=== PATIENT | male | born 2000 | race Caucasian/White ===

== ENCOUNTER 2020-11-10 02:06 | Emergency (ER) | payer BC ==
[~2020-11-10] VITALS: Ht 165.1 cm; Wt 70.0 kg
[2020-11-10] MEDS ORDERED: FAMOTIDINE 20 MG (PEPCID) TABLET PO STA (02:28)
[2020-11-10] MEDS ORDERED: diphenhydrAMINE 50 MG/ML INJ (BENADRYL) IM ONE (02:30)
[2020-11-10] MEDS ORDERED: methylPREDNISolone 125 MG (Solu-MEDROL) VIAL IM ONE (02:30)
--- NOTE | 2020-11-10 02:43 | ED General ---
General Chief Complaint: Allergic Reaction Stated Complaint: HIVES Nursing Triage Note: Woke up with head to toe hives. Unknown cause. No SOA. Source of Information: Patient Exam Limitations: No Limitations History of Present Illness Date Seen by Provider: Nov 10, 2020 Time Seen by Provider: 02:20 Initial Comments Here with report of hives that are on all extremities, torso, neck and face. He is unsure of what precipitated this. Did have a similar episode several months ago. Denies breathing problems, nausea, vomiting or abdominal pain. He has not taken anything for this tonight. He is not sure of the trigger. Woke up from sleep with symptoms. Timing/Duration: 1/2 Hour Severity: Moderate Associated Systoms: No Cough, No Fever/Chills, No Nausea/Vomiting, No Shortness of Air, No Weakness Allergies and Home Medications Allergies Coded Allergies: No Known Drug Allergies (Unverified , 11/10/20) Patient Home Medication List Home Medication List Reviewed: Yes Review of Systems Review of Systems Constitutional: see HPI; No fever, No weakness EENTM: No nose congestion, No throat pain Respiratory: No cough, No short of breath, No wheezing Cardiovascular: no symptoms reported Gastrointestinal: no symptoms reported Genitourinary: no symptoms reported Skin: see HPI; No lesions, No pruritus Psychiatric/Neurological: No Symptoms Reported Past Doqjwtd-Yzedly-Gtmohc Hx Patient Social History Tobacco Use?: No Use of E-Cig and/or Vaping dev: No Substance use?: Yes Substance type: Marijuana Substance frequency: Couple times a week Alcohol Use?: Yes Alcohol type: Beer Alcohol Frequency: Couple times a week Pt feels they are or have been: No Immunizations Up To Date Influenza Vaccine Up-to-Date: Yes; Up-to-Date Past Medical History Surgeries: No Respiratory: No Cardiac: No Neurological: No Physical Exam Vital Signs Vital Signs - First Documented 11/10/20 02:21 Temp 35.3 Pulse 60 Resp 20 B/P (MAP) 130/77 (94) Pulse Ox 99 O2 Delivery Room Air Capillary Refill : Height, Weight, BMI Height: '" Weight: lbs. oz. kg; 25.00 BMI Method: General Appearance: No Apparent Distress, WD/WN HEENT: PERRL/EOMI, Pharynx Normal Neck: Non Tender, Supple Respiratory: Lungs Clear, Normal Breath Sounds Cardiovascular: Regular Rate, Rhythm, No Murmur Gastrointestinal: Non Tender, Soft Back: Normal Inspection, No CVA Tenderness, No Vertebral Tenderness Extremity: Normal Range of Motion, Non Tender Neurologic/Psychiatric: Alert, Oriented x3 Skin: Warm/Dry, Other (Hives noted to all 4 extremities, torso, neck and face.) Progress/Results/Core Measures Suspected Sepsis SIRS Temperature: Pulse: 60 Respiratory Rate: 20 Blood Pressure 130 /77 Mean: 94 Results/Orders My Orders Orders - CAREY RUIZ MD Diphenhydramine Injection (Benadryl Inje (11/10/20 02:30) Methylprednisolone Sod Succ (Solu-Medrol (11/10/20 02:30) Famotidine Tablet (Pepcid Tablet) (11/10/20 02:28) Medications Given in ED Current Medications Medications Dose Ordered Sig/Aimee Route Start Time Stop Time Status Last Admin Dose Admin Diphenhydramine HCl 50 mg ONCE ONCE IM 11/10/20 02:30 11/10/20 02:31 DC 11/10/20 02:35 50 MG Methylprednisolone Sodium Succinate 125 mg ONCE ONCE IM 11/10/20 02:30 11/10/20 02:31 DC 11/10/20 02:36 125 MG Vital Signs/I&O 11/10/20 02:21 Temp 35.3 Pulse 60 Resp 20 B/P (MAP) 130/77 (94) Pulse Ox 99 O2 Delivery Room Air Capillary Refill : Blood Pressure Mean: 94 Progress Note : Progress Note Seen and evaluated. Patient does have rather significant amount of hives. Denies breathing problems or abdominal pain. We will initiate Benadryl 50 mg IM, Solu-Medrol 125 mg IM and Pepcid 20 mg p.o. and monitor patient. No i ndication for epinephrine yet as this seems to be isolated to skin and not full- blown anaphylaxis. 0339: Overall doing much better with hives resolving nicely. Still without respiratory, GI or oropharyngeal complaints. Discharged home with return precautions. Patient verbalized understanding instructions and agreement with plan. Departure Impression Primary Impression: Hives of unknown origin Disposition: 01 HOME, SELF-CARE Condition: Improved Departure-Patient Inst. Decision time for Depature: 03:40 Referrals: NO,LOCAL PHYSICIAN (PCP/Family) Primary Care Physician Patient Instructions: Hives (DC) Add. Discharge Instructions: All discharge instructions reviewed with patient and/or family. Voiced understanding. Take medications as directed. You may take Benadryl or the generic diphenhydramine, 25 mg every 6 hours as needed for itching. You should take [id number] Pepcid/famotidine 20 mg twice daily for the next 4 days and then you may take it daily thereafter as needed for stomach upset. After this situation has resolved, if you have hives return, take 2 Benadryl/diphenhydramine tablets and 1 Pepcid/famotidine tablet. Return immediately to the ER for swelling in your throat or mouth, wheezing, abdominal pain or vomiting or worsening hives. Return for other concerns as needed. CAREY RUIZ MD Nov 10, 2020 02:43
[2020-11-10 04:02] VITALS: BP 114/76
== END 2020-11-10 04:00 | disposition home or self-care (01) ==
LOC: ER 02:15 → EDBD 02:15 → ER 04:00
DX: L50.9 Urticaria, unspecified (principal)
CPT/HCPCS: 99284

== ENCOUNTER 2021-01-11 21:46 | Emergency (ER) | payer BC ==
[2021-01-11] MEDS ORDERED: FAMOTIDINE 20 MG (PEPCID) TABLET PO ONE (22:30)
[2021-01-11] MEDS ORDERED: LORATADINE (CLARITIN) 10 MG TAB PO ONE (22:30)
[2021-01-11] MEDS ORDERED: diphenhydrAMINE 25 MG TAB (BENADRYL) PO ONE (22:30)
--- NOTE | 2021-01-11 22:41 | ED Integumentary General ---
General Chief Complaint: Allergic Reaction Stated Complaint: HIVES Source: patient Exam Limitations: no limitations History of Present Illness Date Seen by Provider: Jan 11, 2021 Time Seen by Provider: 22:25 Initial Comments Patient ER by private conveyance [place] he was [place] tonight and started getting hives all over his body started on his right arm and he now has them on all 4 extremities as well as trunk. He is not having any difficulty swallowing, wheezing, stridor, history of asthma or eczema. He says he has had hives twice in the past. He feels little flushed hot in his face like he is going to pass out. He does not have any other significant medical history. He did start having some nausea after arriving but has not vomited. Allergies and Home Medications Allergies Coded Allergies: No Known Drug Allergies (Unverified , 11/10/20) Patient Home Medication List Home Medication List Reviewed: Yes Review of Systems Review of Systems Constitutional: No chills, No diaphoresis EENTM: No ear discharge, No ear pain Respiratory: No cough, No short of breath Cardiovascular: No chest pain, No edema Gastrointestinal: No abdominal pain; nausea; No vomiting Genitourinary: No discharge, No dysuria Musculoskeletal: No back pain, No joint pain Skin: see HPI; No dryness; rash Psychiatric/Neurological: Denies Anxiety, Denies Depressed All Other Systems Reviewed Negative Unless Noted: Yes Past Znvgonl-Ynvknq-Ctqrev Hx Patient Social History Tobacco Use?: No Use of E-Cig and/or Vaping dev: No Substance use?: No Past Medical History Surgeries: No Respiratory: No Cardiac: No Neurological: No Physical Exam Vital Signs Capillary Refill : General Appearance: WD/WN, mild distress HEENT: PERRL/EOMI, normal ENT inspection, pharynx normal Neck: full range of motion, normal inspection Cardiovascular: normal peripheral pulses, regular rate, rhythm Respiratory: lungs clear, normal breath sounds, no respiratory distress, no accessory muscle use Neurologic/Psychiatric: alert, normal mood/affect, oriented x 3 Skin: warm/dry, rash (Wheals, pruritus erythema blanchable all 4 extremities and patches.) Skin Problem Location: generalized Progress/Results/Core Measures Results/Orders My Orders Orders - COURTNEY KATZ Loratadine Tablet (Claritin Tablet) (01/11/21 22:30) Diphenhydramine Tablet (Benadryl Tablet) (01/11/21 22:30) Famotidine Tablet (Pepcid Tablet) (01/11/21 22:30) Ed Iv/Invasive Line Start (01/11/21 22:36) Lactated Ringers (Lr 1000 Ml Iv Solution (01/11/21 22:45) Methylprednisolone Sod Succ (Solu-Medrol (01/11/21 22:45) Diphenhydramine Injection (Benadryl Inje (01/11/21 22:45) Famotidine Injection (Pepcid Injection) (01/11/21 22:45) Ondansetron Injection (Zofran Injectio (01/11/21 22:45) Medications Given in ED Current Medications Medications Dose Ordered Sig/Aimee Route Start Time Stop Time Status Last Admin Dose Admin Diphenhydramine HCl 25 mg ONCE ONCE IVP 01/11/21 22:45 01/11/21 22:46 DC 01/11/21 22:52 25 MG Famotidine 20 mg ONCE ONCE IVP 01/11/21 22:45 01/11/21 22:46 DC 01/11/21 22:51 20 MG Lactated Ringer's 1,000 ml @ 0 mls/hr Q0M ONCE IV 01/11/21 22:45 01/11/21 22:46 DC 01/11/21 22:52 999 MLS/HR Loratadine 10 mg ONCE ONCE PO 01/11/21 22:30 01/11/21 22:31 DC 01/11/21 22:52 10 MG Methylprednisolone Sodium Succinate 125 mg ONCE ONCE IVP 01/11/21 22:45 01/11/21 22:46 DC 01/11/21 22:51 125 MG Progress Progress Note #1: Time: 22:41 Progress Note Because he is feeling lightheaded we will give him some Zofran, a liter of fluids, IV Benadryl, IV Pepcid, Claritin and Solu-Medrol. Will reexamine shortly Progress Note #2: Time: 23:26 Progress Note Patient is feeling much better. Symptoms are resolved. Hives are gone. He is not having any difficulty with breathing or upper airway issues. Since he says he is had problems with the airway issues in the past were going to provide him with an epinephrine pen. Departure Impression Primary Impression: Hives of unknown origin Disposition: HOME, SELF-CARE Condition: Stable Departure-Patient Inst. Decision time for Depature: 23:20 Referrals: NO,LOCAL PHYSICIAN (PCP/Family) Primary Care Physician Patient Instructions: Anaphylaxis (DC), Hives (DC) Add. Discharge Instructions: You are not having anaphylaxis but I did include a handout that she can familiarize yourself. If you have any difficulties with swallowing, vocal changes, thickening or swelling of the tongue or soft tissue in the back of your mouth then you need to take the epinephrine pen on your way to the nearest ER. Use a long-acting second-generation antihistamine such as Claritin, Zyrtec or Marie once or twice a day for itching or hives. Benadryl 1 to 2 tablets every 6 hours as necessary for itching. If this does not work then you can cloth picker the Vistaril and take 1 or 2 tablets every 6 hours as necessary for itching. Pepcid 1 tablet twice a day until the itching resolves. All discharge instructions reviewed with patient and/or family. Voiced understanding. Scripts Hydroxyzine Pamoate (Vistaril) 25 Mg Capsule 25-50 MG PO Q6H PRN for ITCHING, #30 CAP 0 Refills Prov: COURTNEY KATZ 01/11/21 Epinephrine (Epipen 2-Jason) 0.3 Mg/0.3 Ml Auto.injct 0.3 MG IJ Q15M PRN for anaphylaxis, #1 EA 0 Refills Prov: COURTNEY KATZ 01/11/21 Work/School Note: Work Release Form Date Seen in the Emergency Department: Jan 11, 2021 Return to Work: Jan 13, 2021 Restrictions: No Restrictions COURTNEY KATZ Jan 11, 2021 22:41
[2021-01-11] MEDS ORDERED: methylPREDNISolone 125 MG (Solu-MEDROL) VIAL IVP ONE (22:45)
[2021-01-11] MEDS ORDERED: ONDANSETRON 4 MG/2 ML (SDV) Z0FRAN IVP ONE (22:45)
[2021-01-11] MEDS ORDERED: LACTATED RINGERS 1,000 ML IV ONE (22:45)
[2021-01-11] MEDS ORDERED: diphenhydrAMINE 50 MG/ML INJ (BENADRYL) IVP ONE (22:45)
[2021-01-11] MEDS ORDERED: FAMOTIDINE 20MG/2ML IV (PEPCID) IVP ONE (22:45)
[2021-01-11] MEDS ORDERED: HYDR25CA PO (23:30)
[2021-01-11] MEDS ORDERED: EPIN0.3P3 IJ (23:30)
[2021-01-11 23:36] VITALS: BP 108/62
== END 2021-01-11 23:36 | disposition home or self-care (01) ==
LOC: EDUNIT# 21:46 → ER 21:49
DX: L50.9 Urticaria, unspecified (principal)

== ENCOUNTER 2022-02-11 19:59 | Emergency (ER) | payer BC, OTHER ==
[~2022-02-11] VITALS: Ht 165 cm; Wt 75.5 kg
[~2022-02-11 19:59] MED LIST: EPIN0.3P3 IJ; HYDR25CA PO
[2022-02-11 20:04] VITALS: BP 121/77
--- NOTE | 2022-02-11 20:21 | ED Upper Extremity ---
General Chief Complaint: Upper Extremity Stated Complaint: R SHOULDER INJ,HARD TO MOVE R SHOULDER Source: patient Exam Limitations: no limitations History of Present Illness Date Seen by Provider: Feb 11, 2022 Time Seen by Provider: 20:10 Initial Comments Patient reports that he was playing rugby earlier today at the [employer] and injured his right shoulder. States that he was told that he had an AC separation. Reports that he has continued to have pain and decreased range of motion. Denies any other injuries. Has not had an XR. Onset: this afternoon Severity: mild Pain/Injury Location: right shoulder Method of Injury: sports injury Modifying Factors: Worse With Movement; Improves With Rest Allergies and Home Medications Allergies Coded Allergies: No Known Drug Allergies (Unverified , 11/10/20) Patient Home Medication List Home Medication List Reviewed: Yes Epinephrine (Epipen 2-Jason) 0.3 Mg/0.3 Ml Auto.injct, 0.3 MG IJ Q15M PRN for anaphylaxis Prescribed by: COURTNEY KATZ on 01/11/21 2330 Hydroxyzine Pamoate (Vistaril) 25 Mg Capsule, 25-50 MG PO Q6H PRN for ITCHING Prescribed by: COURTNEY KATZ on 01/11/21 2330 Review of Systems Constitutional: no symptoms reported Cardiovascular: no symptoms reported Musculoskeletal: joint pain (right shoulder); No joint swelling; muscle stiffness (right shoulder) Skin: no symptoms reported All Other Systems Reviewed Negative Unless Noted: Yes Past Borcdjs-Kpdxmb-Crvymp Hx Patient Social History Tobacco Use?: Yes Substance use?: Yes Substance type: Marijuana Alcohol Use?: Yes Alcohol Frequency: Once in a while Pt feels they are or have been: No Immunizations Up To Date First/Initial COVID19 Vaccinat: na Past Medical History Surgery/Hospitalization HX: spinal sx Surgeries: No Respiratory: No Cardiac: No Neurological: No Family Medical History Reviewed Nursing Family Hx Physical Exam Vital Signs Vital Signs - First Documented 02/11/22 20:04 Temp 36.6 Pulse 77 Resp 16 B/P (MAP) 121/77 (92) Pulse Ox 98 O2 Delivery Room Air Capillary Refill : Height, Weight, BMI Height: '" Weight: lbs. oz. kg; 25.00 BMI Method: General Appearance: WD/WN, no apparent distress Cardiovascular: regular rate, rhythm, no edema Respiratory: chest non-tender, lungs clear, normal breath sounds, no r espiratory distress, no accessory muscle use Shoulder: No normal ROM; bone tenderness; No deformity, No ecchymosis; limited ROM, pain, swelling (mild) Wrist: Yes normal inspection, Yes non-tender Hand: normal inspection, non-tender, no evidence of injury Neurologic/Psychiatric: alert, normal mood/affect, oriented x 3 Skin: normal color, warm/dry Progress/Results/Core Measures Results/Orders My Orders Orders - JEFFRY PRASAD APRN Shoulder, Right, 3 Views (02/11/22 20:12) Ed Ortho/Other Supplies Order (02/11/22 20:46) Vital Signs/I&O 02/11/22 20:04 Temp 36.6 Pulse 77 Resp 16 B/P (MAP) 121/77 (92) Pulse Ox 98 O2 Delivery Room Air Diagnostic Imaging Diagonstic Imaging: Xray Plain Films/CT/US/NM/MRI: other (shoulder) Comments NAME: FLOR MAGAÑA [facility] REC#: [id number] PT STATUS: REG ER : 2000 PHYSICIAN: JEFFRY PRASAD APRN ADMIT DATE: 02/11/22/ER Draft Date of Exam:02/11/22 SHOULDER, RIGHT, 3 VIEWS HISTORY: Right shoulder pain. TECHNIQUE: 3 views of the right shoulder. COMPARISON: None. FINDINGS: No acute fracture is seen in the right shoulder. There is slight offset at the undersurface of the acromioclavicular joint. Glenohumeral alignment is normal. Joint spaces are otherwise preserved. IMPRESSION: 1. Subtle offset at the acromioclavicular joint without significant widening. Please correlate with clinical findings to exclude AC joint injury. 2. No acute fracture in the right shoulder. Dictated on workstation # [id number] Dict: 02/11/222030 Trans: 02/11/222034 PJE [id number] Interpreted by: YADIEL SMITH MD Electronically signed by: Departure Impression Primary Impression: AC separation Qualified Codes: S43.101A - Unspecified dislocation of right acromioclavicular joint, initial encounter Disposition: 01 HOME, SELF-CARE Condition: Stable Departure-Patient Inst. Decision time for Depature: 20:44 Referrals: NO,LOCAL PHYSICIAN (PCP) Primary Care Physician ANNE-MARIE LÓPEZ MD, MICHAEL P MD Patient Instructions: Shoulder Add. Discharge Instructions: 1. Home and rest. 2. Ice and elevate. 3. Sling as needed for comfort. 4. Alternate Tylenol/Ibuprofen as needed for pain. 5. Follow up with PCP as needed. 6. Follow up with Orthopedics. 7. Return here if worse or concerns. All discharge instructions reviewed with patient and/or family. Voiced understanding. JEFFRY PRASAD APRN Feb 11, 2022 20:21
--- NOTE | 2022-02-11 20:35 | Diagnostic Imaging Report ---
HISTORY: Right shoulder pain. TECHNIQUE: 3 views of the right shoulder. COMPARISON: None. FINDINGS: No acute fracture is seen in the right shoulder. There is slight offset at the undersurface of the acromioclavicular joint. Glenohumeral alignment is normal. Joint spaces are otherwise preserved. IMPRESSION: 1. Subtle offset at the acromioclavicular joint without significant widening. Please correlate with clinical findings to exclude AC joint injury. 2. No acute fracture in the right shoulder. Dictated by: Dictated on workstation # [id number]
== END 2022-02-11 20:51 | disposition home or self-care (01) ==
LOC: EDUNIT# 19:59 → ER 20:02
DX: S43.101A Unspecified dislocation of right acromioclavicular joint, initial encounter (principal); Z28.310 Unvaccinated for COVID-19; X58.XXXA Exposure to other specified factors, initial encounter; Y93.63 Activity, rugby; Y92.214 College as the place of occurrence of the external cause
CPT/HCPCS: 73030

== ENCOUNTER 2022-03-03 14:28 | Emergency (ER) | payer BC, OTHER ==
[~2022-03-03] VITALS: Ht 165.1 cm; Wt 77.1 kg
--- NOTE | 2022-03-03 16:02 | ED Integumentary General ---
General Chief Complaint: Skin/Wound Problems Stated Complaint: CYST ON TAILBONE Nursing Triage Note: PT AMB TO FT 1 W C/O CYST ON TAILBONE X2 DAYS, MORE IRRITATED AND PAINFUL TODAY. PT A&OX4. Exam Limitations: no limitations History of Present Illness Date Seen by Provider: Mar 03, 2022 Time Seen by Provider: 15:49 Initial Comments Here with sister increased swelling to the area of her tailbone at the upper buttocks. Denies injury. Never had anything like this before. Notes that he has had that for couple days but got worse today and seems more irritated. States it centered between the buttocks and is tender to touch. No wound or drainage noted or reported. Timing/Duration: getting worse, other (Few days) Severity: moderate Location: genitalia (Upper buttocks in the gluteal fold) Possible Cause: no cause identified Associated Symptoms: No fever, No rash Allergies and Home Medications Allergies Coded Allergies: No Known Drug Allergies (Unverified , 11/10/20) Patient Home Medication List Home Medication List Reviewed: Yes Epinephrine (Epipen 2-Jason) 0.3 Mg/0.3 Ml Auto.injct, 0.3 MG IJ Q15M PRN for anaphylaxis Prescribed by: COURTNEY KATZ on 01/11/21 2330 Hydroxyzine Pamoate (Vistaril) 25 Mg Capsule, 25-50 MG PO Q6H PRN for ITCHING Prescribed by: COURTNEY KATZ on 01/11/212329 Review of Systems Review of Systems Constitutional: see HPI; No chills, No fever Respiratory: No cough, No short of breath Cardiovascular: no symptoms reported Gastrointestinal: No nausea, No vomiting Musculoskeletal: No back pain; muscle pain Skin: see HPI, change in color, lesions Past Lqwoinu-Ipxsej-Qmmoxz Hx Patient Social History Tobacco Use?: No Use of E-Cig and/or Vaping dev: Yes E-Cig or Vaping type used: Nicotine Substance use?: Yes Substance type: Marijuana Alcohol Use?: Yes Alcohol Frequency: Couple times a week Immunizations Up To Date First/Initial COVID19 Vaccinat: NONE Second COVID19 Vaccination Jl: NONE Third COVID19 Vaccination Date: NONE COVID19 Vaccine Keysmith: NONE Past Medical History Surgery/Hospitalization HX: spinal sx Surgeries: No Respiratory: No Cardiac: No Neurological: No Family Medical History Reviewed Nursing Family Hx No Pertinent Family Hx Physical Exam Vital Signs Vital Signs - First Documented 03/03/22 15:12 Temp 36.6 Pulse 89 Resp 20 B/P (MAP) 131/73 (92) Pulse Ox 98 O2 Delivery Room Air Capillary Refill : Less Than 3 Seconds General Appearance: WD/WN, no apparent distress Cardiovascular: regular rate, rhythm, no murmur Respiratory: lungs clear, normal breath sounds Neurologic/Psychiatric: alert, oriented x 3 Skin: warm/dry Skin Problem Location: other (Upper gluteal fold) Skin Problem Character: abscess, erythema, swelling Procedures/Interventions I&D : Blade Size: 11 I & D Procedure: betadine prep, sterile drapes applied, sterile dressing applied, gauze wick placed, Wound Packing Packing/Drain: Idoform 05/08 Progress Wound cleaned, prepped and anesthetized with lidocaine 1%. Using 11 blade, 1.5 cm incision made and wound probed. I did get a small amount of purulent drainage. Wound culture obtained. Flushed with copious saline. Packed with half-inch iodoform and cover with sterile dressing. Tolerated procedure well with no complications. Progress/Results/Core Measures Results/Orders My Orders Orders - CAREY RUIZ MD Lidocaine/Epi 2% 1:100,000 (Xylocaine/Ep (03/03/22 16:15) Lidocaine 1% Inj 20 Ml (Xylocaine 1% Inj (03/03/22 16:14) Vital Signs/I&O 03/03/22 15:12 Temp 36.6 Pulse 89 Resp 20 B/P (MAP) 131/73 (92) Pulse Ox 98 O2 Delivery Room Air Blood Pressure Mean: 92 Progress Progress Note : Progress Note Seen and evaluated. I did evaluate for possible abscess with ultrasound and there does look to be complex collection of fluid in the area of concern. I did discuss this with the patient. We will pursue I&D to see if we can get any fluid out and help with his pain. Wound culture will be obtained. Monitor patient. 1705: I&D complete. Discharged home with return precautions. Patient verbalized understand instructions and agreement with plan. He is to follow-up on Sunday morning for wound recheck and packing removal. He could follow[place] [facility] [place] as needed. Departure Impression Primary Impression: Sacrococcygeal pilonidal cyst with abscess Disposition: 01 HOME, SELF-CARE Condition: Improved Departure-Patient Inst. Decision time for Depature: 17:06 Referrals: NO,LOCAL PHYSICIAN (PCP/Family) Primary Care Physician Patient Instructions: Abscess Incision and Drainage (DC), Pilonidal Cyst (DC) Add. Discharge Instructions: All discharge instructions reviewed with patient and/or family. Voiced understanding. Take medications as directed. Return on Sunday morning for packing removal and reevaluation. You may take Tylenol/acetaminophen 1000 mg every 6 hours as needed for pain. You may take ibuprofen 600 mg every 8 hours as needed for pain. It is okay to shower. Change top dressing once or twice daily as needed but keep wick in place. If the wick falls out, continue to rinse wound twice da lani with fresh water. Return for worse pain, fever, swelling or other concerns as needed. Scripts Metronidazole (Metronidazole) 500 Mg Tablet 500 MG PO TID, #21 TAB 0 Refills Prov: CAREY RUIZ MD 03/03/22 Cephalexin (Cephalexin) 500 Mg Capsule 500 MG PO Q6H for 7 Days, #28 CAP 0 Refills Prov: CAREY RUIZ MD 03/03/22 CAREY RUIZ MD Mar 03, 2022 16:02
[2022-03-03] MEDS ORDERED: LIDOCAINE 1% INJ 20 ML VIAL ONE (16:14)
[2022-03-03] MEDS ORDERED: LIDOCAINE/EPI 2% 1:100,00 (XYLOCAINE) 20 ML VIAL INJ ONE (16:15)
[2022-03-03] MEDS ORDERED: CEPH500C PO (17:08)
[2022-03-03] MEDS ORDERED: METR-145 PO (17:08)
[2022-03-03 17:18] VITALS: BP 129/78
== END 2022-03-03 17:18 | disposition home or self-care (01) ==
LOC: EDUNIT# 14:28 → ER 14:31
DX: L05.01 Pilonidal cyst with abscess (principal); F17.290 Nicotine dependence, other tobacco product, uncomplicated; Z28.310 Unvaccinated for COVID-19
CPT/HCPCS: 10061; 87070; 87205

== ENCOUNTER 2022-03-05 09:28 | Emergency (ER) | payer BC, OTHER ==
[~2022-03-05] VITALS: Ht 165 cm; Wt 77.0 kg
[~2022-03-05 09:28] MED LIST changes: +CEPH500C PO; +METR-145 PO
--- NOTE | 2022-03-05 10:13 | ED Suture Removal/Wound Check ---
Suture/Wound Re-check Suture Removal/Wound Recheck : Suture Removal/Wound Recheck: Packing removed Progress Pilonidal cyst reevaluated, packing removed, replaced with 2 to 3 inches of half-inch plain packing. Patient tolerated the procedure well. General Appearance: WD/WN, no apparent distress Skin Exam: normal color, warm/dry Physical Exam Vital Signs Vital Signs - First Documented 03/05/22 09:40 Temp 36.7 Pulse 54 Resp 18 B/P (MAP) 115/66 Pulse Ox 99 O2 Delivery Room Air Capillary Refill : General Appearance: WD/WN, no apparent distress Skin: other (Incision site at apex of gluteal cleft, packing present, no surrounding cellulitic changes. Packing removed and replaced.) Departure Impression Primary Impression: Sacrococcygeal pilonidal cyst with abscess Disposition: HOME, SELF-CARE Condition: Stable Departure-Patient Inst. Decision time for Depature: 10:11 Referrals: KE DAMON DO NO,LOCAL PHYSICIAN (PCP) Primary Care Physician Patient Instructions: Pilonidal Cyst Add. Discharge Instructions: Bathe daily. You can soak in a tub. Ibuprofen 600mg every 6 hours as needed for pain. Always take with food. Return to the Emergency Department for any fever, worsening pain or other emergent concerning symptoms. Follow up with Dr Damon next week 2-3 days for packing removal and wound re- evaluation.. MARCO A CAREY MD Mar 05, 2022 10:13
[2022-03-05 10:45] VITALS: BP 115/66
== END 2022-03-05 10:45 | disposition home or self-care (01) ==
LOC: EDUNIT# 09:28 → ER 09:29
DX: L05.01 Pilonidal cyst with abscess (principal); Z28.310 Unvaccinated for COVID-19